=== PATIENT | male | born 1980 | race Caucasian/White ===

== ENCOUNTER 2020-04-19 10:32 | Emergency (ER) | payer OTHER, SELFPAY ==
[2020-04-19] VITALS (7 sets, daily range): BP systolic 125–156; BP diastolic 71–101; PULSE 57–62; RESP 14; TEMP 37.1; O2SAT 96–100
[2020-04-19 10:58] LABS: Basophils Percent Auto 0.2 % (0.2-1.2); Hematocrit 47.6 % (42.0-52.0); Hemoglobin 17.1 g/dL (14.0-18.0); Immature Granulocyte Absolute 0.03 K/mm3 (0.00-0.031); Immature Granulocyte Percent A 0.3 % (0-0.5); Lymphocytes Absolute Auto 0.63 K/mm3 (0.9-3.2); Lymphocytes Percent Auto 5.4 % (18.3-44.2); Mean Corpuscular HGB Conc 35.9 g/dl (32-36); Mean Corpuscular Hemoglobin 33.7 pg (26-34); Mean Corpuscular Volume 93.7 fl (80-100); Mean Platelet Volume 10.1 fl (7.4-10.4); Monocytes Absolute Auto 0.5 K/mm3 (0.1-0.6); Neutrophils Absolute Auto 10.5 K/mm3 (1.3-6.7); Neutrophils Percent Auto 90.1 % (45.5-73.1); Platelet Count Result 297 k/mm3 (150-375); Red Blood Count 5.08 M/mm3 (4.6-6.20); Red Cell Distribution Width 11.9 % (11.5-14.5); White Blood Count 11.6 K/mm3 (4.5-10.0)
[2020-04-19 11:09] LABS: Alanine Aminotransferase 53 U/L (4-50); Alkaline Phosphatase 118 U/L (38-126); Aspartate Amino Transferase 39 U/L (17-59); Bilirubin,Total 0.8 mg/dL (0.2-1.3); Blood Urea Nitrogen 11 mg/dL (9-20); Calcium 9.9 mg/dL (8.4-10.2); Carbon Dioxide 27 mmol/L (22-30); Chloride 101 mmol/L (98-107); Estimated CRCL calculation 117 ml/min; Estimated Glomerular Filt Rate > 60; Glucose 138 mg/dL (75-110); Lipase 65 U/L (23-300); Potassium 3.7 mmol/L (3.4-5.0); Sodium 137 mmol/L (137-145)
[2020-04-19] MEDS: ONDANSETRON INJ 4 MG/2 ML VIAL IV PUSH (11:15)
[2020-04-19] MEDS: SODIUM CHLORIDE 0.9% IV 1,000 ML 999 ML IV CONT (11:16)
[2020-04-19 11:30] LABS: Add Urine Microscopic? YES; Amorphous Sediment Urine Few; Appearance Urine Clear (Clear); Bacteria Urine Trace /hpf; Bilirubin Urine Negative (Negative); Blood Urine Negative (Negative); Color Urine Yellow (Yellow); Glucose Urine UA Negative (Negative); Ketones Urine 2+ mg/dL (Negative); Leukocyte Esterase Ur Negative LEU/UL (Negative); Mucus Urine Rare /lpf; Nitrate Urine Negative (Negative); Protein Urine 2+ mg/dL (Negative); Specific Grav Ur 1.025 (1.001-1.035); Urobilinogen Urine Negative mg/dL (<2.0)
--- NOTE | 2020-04-19 13:32 | ED.NAVMDI ---
HPI - Nausea/Vomiting/Diarrhea General Chief complaint: Nausea/Vomiting/Diarrhea Stated complaint: NAUSEA, VOMITING Time Seen by Provider: 04/19/20 10:41 History of Present Illness HPI Narrative: Patient is a 40-year-old male who presents the ER with nausea and vomiting. Began overnight. Now he just has persistent nausea because he has nothing left to vomit. No diarrhea. Reports upset stomach but no actual pain. No known sick contacts. He has been without fevers or chills or sweats. Related Data Allergies Allergy/AdvReac Type Severity Reaction Status Date / Time ketorolac AdvReac Mild Nausea Verified 04/19/20 11:16 morphine AdvReac Mild NAUSEA Verified 01/31/19 22:13 WITH IV hydrocodone AdvReac Unknown Itching Verified 04/19/20 11:16 Review of Systems Review of Systems: All systems reviewed & are unremarkable except as noted in HPI and below Constitutional: Constitutional: Denies chills, Denies fever(s) and Denies weakness ENT: Denies nasal congestion and Denies sore throat Cardiovascular: Cardiovascular: Denies chest pain and Denies radiating jaw, neck or arm pain Respiratory: Respiratory: Denies cough, Denies dyspnea and Denies wheezing Gastrointestinal: Gastrointestinal: Denies abdominal pain, Denies diarrhea, Reports nausea and Reports vomiting PMFSH Past Medical History Medical History (Updated 04/19/20 @ 13:36 by Jose Antonio French MD) Depression GERD (gastroesophageal reflux disease) Kidney stones Surgical History Surgical History (Updated 04/19/20 @ 13:34 by Jose Antonio French MD) No pertinent past surgical history Family History Family History (Updated 07/10/14 @ 07:13 by DOCTOR UNKNOWN) Father Hypertension Family history of lupus erythematosus Mother Family history of osteoarthritis Other Family history of arthritis Family history of transient ischemic attacks Social History Social History Alcohol intake: current Gender identity (if verbalized by the patient): Male Exam Narrative: Exam Narrative: GENERAL: Uncomfortable-appearing, well-nourished, and in no acute distress. HEAD: Normocephalic, atraumatic. ENT: Mucous membranes moist. CHEST: Clear to auscultation. No respiratory distress. HEART: Regular rate and rhythm. Normal peripheral pulses. ABDOMEN: Soft, nontender, nondistended, normal active bowel sounds. EXTREMITIES: Normal range of motion. No edema. SKIN: Warm, dry, no rash. NEURO: Alert and oriented x3. Course Course Emergency Course: Patient informed of results. Feels better with antiemetics. Discharge home. Vital Signs Vital signs: Vital Signs Temperature 98.8 F 04/19/20 10:44 Pulse Rate 60 04/19/20 10:44 Respiratory Rate 14 04/19/20 10:44 Blood Pressure 151/93 H 04/19/20 10:44 Pulse Oximetry 100 04/19/20 10:44 Temperature 98.8 F 04/19/20 10:44 Pulse Rate 57 L 04/19/20 11:54 Respiratory Rate 14 04/19/20 11:54 Blood Pressure 133/81 04/19/20 11:54 Pulse Oximetry 96 04/19/20 11:54 MDM - Nausea/Vomiting/Diarrhea Lab Data Result diagrams: 04/19/20 10:47 04/19/20 10:47 Labs: Lab Results 04/19/20 04/19/20 04/19/20 Range/Units 10:47 10:47 11:20 WBC 11.6 H (4.5-10.0) K/mm3 RBC 5.08 (4.6-6.20) M/mm3 Hgb 17.1 (14.0-18.0) g/dL Hct 47.6 (42.0-52.0) % MCV 93.7 (80-100) fl MCH 33.7 (26-34) pg MCHC 35.9 (32-36) g/dl RDW 11.9 (11.5-14.5) % Plt Count 297 (150-375) k/mm3 MPV 10.1 (7.4-10.4) fl Immature Gran % (Auto) 0.3 (0-0.5) % Neut % (Auto) 90.1 H (45.5-73.1) % Lymph % (Auto) 5.4 L (18.3-44.2) % [place] % (Auto) 4.0 (2.6-8.5) % Eos % (Auto) 0.0 (0-4.4) % Baso % (Auto) 0.2 (0.2-1.2) % Lymph # (Auto) 0.63 L (0.9-3.2) K/mm3 [place] # (Auto) 0.5 (0.1-0.6) K/mm3 Eos # (Auto) 0.0 (0-0.3) K/mm3 Baso # (Auto) 0.0 (0.0-0.1) K/mm3 Abs Immat Gran (auto) 0.03 (0.00-0.031) K/mm3 Absolu
== END 2020-04-19 13:44 | disposition home or self-care (01) ==
PROVIDERS: Emergency Provider Emergency Medicine; PCP Family Medicine
DX: K52.9 Noninfective gastroenteritis and colitis, unspecified (principal); K21.9 Gastro-esophageal reflux disease without esophagitis; Z87.442 Personal history of urinary calculi
CPT/HCPCS: 36415; 80053; 81001; 83690; 85025; 96361; 96374; 99284; J2405; J7030

== ENCOUNTER 2023-05-06 13:02 | Emergency (ER) | payer OTHER, SELFPAY ==
[2023-05-06] VITALS (11 sets, daily range): BP systolic 128–152; BP diastolic 78–93; PULSE 65–84; RESP 14–19; TEMP 36.8; O2SAT 99–100
[2023-05-06 13:28] LABS: Basophils Percent Auto 0.2 % (0.2-1.2); Eosinophils Absolute Auto 0.1 K/mm3 (0-0.3); Eosinophils Percent Auto 0.7 % (0-4.4); Hematocrit 49.5 % (42.0-52.0); Hemoglobin 17.4 g/dL (14.0-18.0); Immature Granulocyte Absolute 0.03 K/mm3 (0.00-0.031); Immature Granulocyte Percent A 0.3 % (0-0.5); Lymphocytes Absolute Auto 2.05 K/mm3 (0.9-3.2); Lymphocytes Percent Auto 21.8 % (18.3-44.2); Mean Corpuscular HGB Conc 35.2 g/dl (32-36); Mean Corpuscular Hemoglobin 32.5 pg (26-34); Mean Corpuscular Volume 92.5 fl (80-100); Mean Platelet Volume 9.8 fl (7.4-10.4); Monocytes Absolute Auto 1.1 K/mm3 (0.1-0.6); Monocytes Percent Auto 12.1 % (2.6-8.5); Neutrophils Absolute Auto 6.1 K/mm3 (1.3-6.7); Neutrophils Percent Auto 64.9 % (45.5-73.1); Platelet Count Result 338 k/mm3 (150-375); Red Blood Count 5.35 M/mm3 (4.6-6.20); Red Cell Distribution Width 12.5 % (11.5-14.5); White Blood Count 9.4 K/mm3 (4.5-10.0)
[2023-05-06] MEDS: ONDANSETRON INJ 4 MG/2 ML VIAL 8 MG IV PUSH (13:35)
[2023-05-06] MEDS: KETOROLAC 15 MG/ML VIAL (*BKC) IV PUSH (13:35)
[2023-05-06] MEDS: SODIUM CHLORIDE 0.9% IV 2,000 ML 999 ML IV CONT (13:36)
[2023-05-06 13:37] LABS: Alanine Aminotransferase 44 U/L (6-50); Albumin Level 4.9 g/dL (3.5-5.1); Alkaline Phosphatase 132 U/L (38-126); Anion Gap 10 mmol/L (8-16); Aspartate Amino Transferase 40 U/L (17-59); Blood Urea Nitrogen 14 mg/dL (9-20); Calcium 9.2 mg/dL (8.4-10.2); Carbon Dioxide 25 mmol/L (22-30); Chloride 104 mmol/L (98-107); Estimated CRCL calculation 114 ml/min; Estimated Glomerular Filt Rate > 60; Glucose 136 mg/dL (65-110); Lipase 90 U/L (23-300); Potassium 3.6 mmol/L (3.4-5.0); Sodium 139 mmol/L (137-145)
[2023-05-06] MEDS: PROCHLORPERAZINE EDISYLATE 10 MG/2 ML VIAL IV PUSH (14:32)
[2023-05-06 14:46] LABS: Appearance Urine Clear (Clear); Bacteria Urine None Seen /hpf; Bilirubin Urine Negative (Negative); Blood Urine Trace (Negative); Color Urine Yellow (Yellow); Glucose Urine UA Negative (Negative); Ketones Urine Trace mg/dL (Negative); Leukocyte Esterase Ur Trace LEU/UL (Negative); Nitrate Urine Negative (Negative); Non Pathogenic Casts 0-2; Protein Urine Negative (Negative); Specific Grav Ur 1.023 (1.001-1.035); Squamous Epithelial Cell Urine None seen /hpf (Few); Urobilinogen Urine 0.2 mg/dL (<2.0); pH Urine 5.5 (5.0-9.0)
--- NOTE | 2023-05-06 14:50 | ED.GENADULT ---
HPI - General Adult General Chief complaint: Nausea/Vomiting/Diarrhea Stated complaint: nausea, vomiting, diarrhea, back pain Time Seen by Provider: 05/06/23 13:12 History of Present Illness HPI narrative: This is a 43-year-old male presenting to ED with 1 day of nausea vomiting diarrhea. Patient was out to dinner with his family last night and then went home and had GI symptoms throughout the night. At this time he has some crampy abdominal pain that is improving. No other symptoms. Related Data Allergies Allergy/AdvReac Type Severity Reaction Status Date / Time ketorolac AdvReac Mild Nausea Verified 04/19/20 11:16 morphine AdvReac Mild NAUSEA Verified 01/31/19 22:13 WITH IV hydrocodone AdvReac Unknown Itching Verified 04/19/20 11:16 PMFSH Past Medical History Medical History Depression GERD (gastroesophageal reflux disease) Kidney stones Surgical History Surgical History No pertinent past surgical history Family History Family History Father Hypertension Family history of lupus erythematosus Mother Family history of osteoarthritis Other Family history of arthritis Family history of transient ischemic attacks Social History Social History Alcohol intake: current Gender identity (if verbalized by the patient): Male Exam Narrative: APPEARANCE: No apparent distress. Head: atraumatic. EYES: EOMI, NOSE: Atraumatic NECK: Trachea midline RESPIRATORY: No increased rate of breathing, clear to auscultation CARDIOVASCULAR: RRR, ABDOMINAL: Non-distended , soft nontender no guarding or rebound MUSCULOSKELETAl: No obvious deformities NEURO: Alert. Moving 4/4 extremities SKIN:: Warm, dry. Normal color PSYCHIATRIC: Normal affect Course Vital Signs Vital signs: Vital Signs Temperature 98.3 F 05/06/23 13:06 Pulse Rate 70 05/06/23 13:06 Respiratory Rate 16 05/06/23 13:06 Blood Pressure 152/93 H 05/06/23 13:06 Pulse Oximetry 99 05/06/23 13:06 Oxygen Delivery Room Air 05/06/23 13:06 Temperature 98.3 F 05/06/23 13:06 Pulse Rate 70 05/06/23 13:06 Respiratory Rate 16 05/06/23 13:06 Blood Pressure 152/93 H 05/06/23 13:06 Pulse Oximetry 99 05/06/23 13:06 Oxygen Delivery Room Air 05/06/23 13:06 Medical Decision Making MDM Narrative Medical decision making narrative: -Presentation: 43-year-old male presenting with 1 day of nausea/vomiting/diarrhea. 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 Urine and viral studies are still pending when the patient wanted to leave the ER. -Discussion of Management/Consultants: None -Dx tests considered but not ordered: CT abdomen pelvis -benign abdominal exam and normal vital signs -Procedures: -Interventions: 2 L normal saline, Tylenol, Toradol, Compazine, Zofran -Shared decision making / Disposition: patient stated that he wanted to leave before we got his urine viral swabs. Patient's most likely has gastroenteritis. Patient discharged with return precautions. -RX Zofran Vital Signs Vital Signs: Vital Signs Temperature 98.3 F 05/06/23 13:06 Pulse Rate 70 05/06/23 13:06 Respiratory Rate 16 05/06/23 13:06 Blood Pressure 152/93 H 05/06/23 13:06 Pulse Oximetry 99 05/06/23 13:06 Oxygen Delivery Room Air 05/06/23 13:06 Temperature 98.3 F 05/06/23 13:06 Pulse Rate 70 05/06/23 13:06 Respi
[2023-05-06 15:11] LABS: Add Urine Microscopic? YES
[2023-05-06 15:24] LABS: Influenza A QL RT-PCR Negative (Negative); Influenza B QL RT-PCR Negative (Negative); RSV RNA, RT-PCR Negative (Negative); SARS-CoV-2 RNA PCR Negative (Negative)
== END 2023-05-06 15:15 | disposition home or self-care (01) ==
PROVIDERS: Emergency Provider Emergency Medicine; PCP Family Medicine
DX: K52.9 Noninfective gastroenteritis and colitis, unspecified (principal); K21.9 Gastro-esophageal reflux disease without esophagitis; Z87.442 Personal history of urinary calculi; Z20.822 Contact with and (suspected) exposure to COVID-19
CPT/HCPCS: 36415; 80053; 81001; 83690; 85025; 87086; 87637; 96365; 96375; 99284; J0131; J0780; J1885; J2405; J7030